=== PATIENT | female | born 1975 | race Caucasian/White ===

== ENCOUNTER 2019-09-09 06:03 | Day surgery (SDC) | payer OTHER ==
[~2019-09-09] VITALS: Ht 149.9 cm; Wt 72.6 kg
[2019-09-09] MEDS ORDERED: LACTATED RINGERS 1,000 ML IV SCH (06:30)
[2019-09-09] MEDS ORDERED: BUPIVACAINE HCL 0.5% (5MG/ML) 50ML ONE (06:42)
[2019-09-09] MEDS ORDERED: SKIN ADHESIVE 0.7 GM EA TOP ONE (06:43)
[2019-09-09 06:46] LABS: UCG SCREEN NEGATIVE
[2019-09-09] MEDS ORDERED: FENTANYL CITRATE/PF 50MCG/ML 2ML VIAL ONE (07:11)
[2019-09-09] MEDS ORDERED: SODIUM CHLORIDE 0.9% 10ML VIAL ONE (07:12)
[2019-09-09] MEDS ORDERED: MIDAZOLAM HCL 2 MG/2 ML VIAL ONE (07:12)
[2019-09-09] MEDS ORDERED: LIDOCAINE HCL/PF 1% 10 MG/ML 5ML VIAL ONE (07:12)
[2019-09-09] MEDS ORDERED: CEFAZOLIN SODIUM 1000MG/VIAL ONE (07:12)
[2019-09-09] MEDS ORDERED: PROPOFOL 200MG/20ML VIAL IV ONE (07:12)
[2019-09-09] MEDS ORDERED: SUCCINYLCHOLINE CHLORIDE 200MG/10ML IV ONE (07:12)
[2019-09-09] MEDS ORDERED: ROCURONIUM BROMIDE 10MG/ML VIAL 5ML IV ONE (07:13)
[2019-09-09] MEDS ORDERED: ONDANSETRON HCL 4MG/2ML INJ ONE ×2 (08:05→12:45)
[2019-09-09] MEDS ORDERED: GLYCOPYRROLATE 0.2 MG/ML 2ML VIAL ONE (08:12)
[2019-09-09] MEDS ORDERED: NEOSTIGMINE METHYLSULFATE 1MG/ML 10 ML VIAL ONE (08:12)
[2019-09-09] MEDS ORDERED: HYDRALAZINE 20MG/ML VIAL IV ONE (08:45)
[2019-09-09] MEDS: HYDROMORPHONE HCL/PF 2MG/ML CPJ IV PRN ×4 (09:10→11:13)
[2019-09-09 11:13] VITALS: BP 127/75
[2019-09-09] MEDS ORDERED: ONDANSETRON HCL 4MG/2ML INJ IV SCH (12:55)
== END 2019-09-09 13:05 | disposition home or self-care (01) ==
LOC: OR 06:03
PROVIDERS: ATTEND Surgery
DX: K80.10 Calculus of gallbladder with chronic cholecystitis without obstruction (principal); Z98.890 Other specified postprocedural states; Z98.891 History of uterine scar from previous surgery
CPT/HCPCS: 47562; 81025; 88304; J0330; J0360; J0690; J1170; J2250; J2405; J2704; J2710; J3010; J3490